=== PATIENT | male | born 1965 | race Caucasian/White ===

== ENCOUNTER 2016-12-20 09:50 | Emergency (ER) | payer BC ==
[~2016-12-20 09:50] MED LIST: ADVIL; ALLOPURINOL300 MG PO; ASPIRIN81 M2 PO; CERTAGEN PO; IBUPROFEN PO; INDOCIN SR75 MG PO; INDOMETHACIN50 MG PO; MEDROL4 MG/DOSE- PO; VITAMIN D400 UNI2 PO; VOLTAREN75 MG PO
== END 2016-12-20 11:10 | disposition home or self-care (01) ==
LOC: SED 09:50
DX: M10.9 Gout, unspecified (principal); Z79.82 Long term (current) use of aspirin; Z79.899 Other long term (current) drug therapy
CPT/HCPCS: 96372; 99283; J1885